=== PATIENT | male | born 1945 | race Caucasian/White ===

== ENCOUNTER → 2017-06-23 | Outpatient (CLI) | payer MEDICARE ==
[~2017-06-23] MED LIST: ACET-1966 PO; DOC100 PO; DOXA8TAB62 PO; DOXY-181 PO; FINA5TAB67 PO; LOR5 PO; PER PO; POTC540 PO; TAMS0.4C76 PO; TOLT4CAP PO
[2017-06-23 15:12] LABS: PLATELET COUNT, AUTOMATED 195 K/uL (150-450)
== END ==
LOC: LAB 15:00
PROVIDERS: ATTEND Emergency Medicine
DX: R22.1 Localized swelling, mass and lump, neck (principal)
CPT/HCPCS: 36415; 82040; 82247; 82310; 82374; 82435; 82565; 82947; 84075; 84132; 84155; 84295; 84450; 84460; 84520; 85025

== ENCOUNTER → 2017-06-24 | Outpatient (CLI) | payer MEDICARE ==
[~2017-06-24] MED LIST changes: +IOPAMIDOL 76% 75 ML INFUS BTL 75 ML ONE; +NS 0.9% 50 ML VIAL 50 ML ONE
--- NOTE | 2017-06-24 10:36 | RADIOLOGY IMAGING REPORT ---
FACILITY: [facility] PATIENT NAME: Vasyl Ocampo : 1945 MR: [id number] V: [id number] EXAM DATE: ORDERING PHYSICIAN: KATHERINE RIVAS TECHNOLOGIST: Location: [facility] [place] Patient: Vasyl Ocampo : 1945 Visit/Account:[id number] Date of Sevice: 06/24/2017 NECK SOFT TISSUE W CONTRAST Provided history: Left sided neck mass for two weeks Additional pertinent history: none TECHNIQUE: Spiral scan was obtained from the hard palate through the upper chest with intravenous contrast Contrast dose: 75 mL Isovue 370 intravenously. One of the following dose optimization techniques was utilized in the performance of this exam: Autom ated exposure control; adjustment of the mA and/or kV according to the patient's size; or use of an i terative reconstruction technique. Specific details can be referenced in the facility's radiology CT exam operational policy. COMPARISON STUDIES: none FINDINGS: Visualized orbits / brain / paranasal sinuses: Negative Nasal cavity / nasopharynx: Moderate rightward deviation nasal septum. Oral cavity / oropharynx / hypopharynx: negative Parapharyngeal / gas pump attendant spaces: negative Major salivary glands: negative Larynx / trachea / esophagus / thyroid: negative Perivertebral space: There is a circumscribed hyperdense mass in the paraspinal component of the per ivertebral space extending from lower C4 through the C6-7 level centered on the level of the C4-5 for amen the mass has a more sharply marginated point extending into the lateral aspect of the left C4-5 foramen posterior to the transverse process best seen axial images 37 and 38 which may indicate its o rigin from the exiting nerves. It shows heterogenous hypoenhancement or hypodensity centrally and hyp erenhancement or hyperdensity peripherally. It is difficult to discern calcification versus enhanceme nt on this enhanced only study. The mass is clearly in the perispinal space, not involving the hosiery operator ior carotid space. No additional similar masses elsewhere. Vessels: negative Bones: Advanced multilevel degenerative changes cervical spine involving C3-4, C4-5, C5-6 and C6-7 w ith moderate-sized bridging a plate spurs that at least mildly narrow the central canal. Multilevel f oraminal narrowing is most significant at mid cervical levels. No high-grade foraminal stenosis. No l ytic or blastic bone lesion. Skin / subcutaneous spaces: negative Lymph nodes: There is no concerning adenopathy in the neck. The lowermost images in the chest demons trate the upper margin of a water attenuation cystic structure measuring at least 3 cm in diameter, n ot fully assessed. Visualized lung apices reveal no nodules. Upper chest: Per above IMPRESSION: 1. There is a hyperdense or hyperenhancing mass in the paraspinal component of the left perivertebral space centered at the C4-5 level with a potential connection to the lateral foramen. The latter find ing in particular would suggest probable schwannoma as to etiology. Differential would include metast atic disease and less likely lymphoma. This is amenable to percutaneous sampling if indicated. 2. No neck adenopathy. There is a cystic structure in the right superior mediastinum is not fully nahomy luated, either a mediastinal cyst or possibly an extension of the pericardium. Further assessment wit h CT chest may be warranted. Report Dictated By: Wallace Rush MD at 06/24/2017 10:09 AM Report E-Signed By: Wallace Rush MD at 06/24/2017 10:32 AM WSN:[id number]
== END ==
LOC: CT 06:55
PROVIDERS: ATTEND Emergency Medicine
DX: J34.2 Deviated nasal septum (principal); M48.8X2 Other specified spondylopathies, cervical region; M50.323 Other cervical disc degeneration at C6-C7 level
CPT/HCPCS: 70491; J7050; Q9967

== ENCOUNTER → 2017-07-15 | Outpatient (CLI) | payer MEDICARE ==
[~2017-07-15] MED LIST changes: +GADOBENATE 529MG/1ML 15ML VIAL IVP ONE; -IOPAMIDOL 76% 75 ML INFUS BTL 75 ML ONE; -NS 0.9% 50 ML VIAL 50 ML ONE
--- NOTE | 2017-07-15 12:13 | RADIOLOGY IMAGING REPORT ---
FACILITY: [facility] [place] PATIENT NAME: Vasyl Ocampo : 1945 MR: [id number] V: [id number] EXAM DATE: ORDERING PHYSICIAN: KAREEM MAGALLANES TECHNOLOGIST: Location: [facility] [place] Patient: Vasyl Ocampo : 1945 Visit/Account:[id number] Date of Sevice: 07/15/2017 EXAMINATION: MRI neck without IV contrast MRI neck with IV contrast HISTORY: Mass of left side of neck. Patient states mass for 7-8 weeks, not painful. COMPARISON: CT neck from 06/24/2017. TECHNIQUE: Multi-planar, multi-sequence neck MRI was performed before and after IV contrast. CONTRAST: 15 mL of IV MultiHance gadolinium. FINDINGS: The exam is limited by patient motion artifact. Masses/lesions: A marker is placed on the left neck, corresponding to the palpable abnormality. Thi s corresponds to a mass in the paraspinal muscles to the left of the C4-C6 facets. There is slight d isplacement versus involvement of the adjacent levator scapula muscle. The lesion is heterogeneous o n T2 images with several flow voids, isointense to muscle on T1, and avidly enhances. Although the l esion is immediately adjacent to the facets, there is no involvement of the neural foramen, spinal ca nal or bony structures. The lesion measures 3.2 x 2.7 cm (image 18 series 12) by 3.8 cm (image 18 se sharon 11). This lesion corresponds to the abnormality seen on recent CT. Airway: Normal. Vessels: Negative. Marrow: Mild degenerative changes of the cervical spine. There is no focal bony abnormality or worri some marrow edema. Subcutaneous tissues: Negative. Lymph node assessment: There are no enlarged or abnormal morphology lymph nodes. Visualized orbits/brain/paranasal sinuses: Negative. Upper chest: Negative. Enhancement pattern: Normal. IMPRESSION: 3.2 x 2.7 x 3.8 cm avidly enhancing mass in the left paraspinal muscles from the C4-C6 levels, withou t involvement of the adjacent bony structures or neural foramen. Differential considerations include schwannoma or paraganglioma. Report Dictated By: July Bacon MD at 07/15/2017 11:06 AM Report E-Signed By: July Bacon MD at 07/15/2017 12:09 PM WSN:[id number]
== END ==
LOC: MRI 02:57
PROVIDERS: ATTEND Otolaryngology
DX: R22.1 Localized swelling, mass and lump, neck (principal)
CPT/HCPCS: 70543; A9577

== ENCOUNTER 2017-08-01 02:19 | Day surgery (SDC) | payer MEDICARE ==
[~2017-08-01] VITALS: Ht 175.3 cm; Wt 83.0 kg
[~2017-08-01 02:19] MED LIST changes: -GADOBENATE 529MG/1ML 15ML VIAL IVP ONE; +ceFAZolin(*) 2GM/D5W 50ML 50 ML IVPB ONE
[2017-08-01] MEDS ORDERED: LIDOCAINE MPF 1% 5 ML VIAL ONE (07:01)
[2017-08-01] MEDS ORDERED: DEXAMETHASONE SOD 4 MG/ML VIAL ONE (07:01)
[2017-08-01] MEDS ORDERED: ONDANSETRON 4 MG/2 ML VIAL ONE (07:01)
[2017-08-01] MEDS ORDERED: PROPOFOL EMUL(*) 10MG/ML 20 ML 20 ML ONE (07:01)
[2017-08-01] MEDS ORDERED: fentaNYL CITR 100 MCG/2 ML AMP ONE ×2 (07:01→10:03)
[2017-08-01] MEDS ORDERED: BACITRACIN OINT 15 GM TUBE TP ONE (07:09)
[2017-08-01] MEDS ORDERED: LIDO/EPI 1% MDV 1:100,000 20ML INFIL ONE (07:10)
[2017-08-01 07:16] LABS: PLATELET COUNT, AUTOMATED 170 K/uL (150-450)
--- NOTE | 2017-08-01 07:38 | EKG ---
FACILITY: [facility] - [place] PATIENT NAME: KWABENA KRAUSE : [id number] MR: [id number] V: [id number] EXAM DATE: ORDERING PHYSICIAN: BARNDON HOUSTON TECHNOLOGIST: NATHAN Test Reason : PREOP-NECK Blood Pressure : / mmHG Vent. Rate : 076 BPM Atrial Rate : 076 BPM P-R Int : 170 ms QRS Dur : 080 ms QT Int : 374 ms P-R-T Axes : 046 053 041 degrees QTc Int : 420 ms Sinus rhythm No acute appearing findings No previous ECGs available Confirmed by NILAM VALDEZ ([id number]) on 08/01/2017 11:35:42 AM Referred By: ELPIDIO Confirmed By:NILAM VALDEZ
[2017-08-01 07:55] VITALS: BP 129/89
[2017-08-01] MEDS ORDERED: ceFAZolin(*) 2GM/D5W 50ML 50 ML IVPB ONE ×2 (08:10→08:15)
[2017-08-01] MEDS ORDERED: LIDOCAINE/SOD BICARB 8.4% SYR ID ONE (08:20)
[2017-08-01] MEDS ORDERED: NORMOSOL R SOLN(*) 1000 ML BAG 1,000 ML IV PRN (08:20)
[2017-08-01] MEDS ORDERED: FAMOTIDINE 20 MG TAB PO ONE (08:20)
[2017-08-01] MEDS ORDERED: MIDAZOLAM 2 MG/2 ML VIAL IVP PRN (08:20)
[2017-08-01] MEDS ORDERED: KETAMINE HCL 200 MG/20 ML MDV ONE (08:45)
[2017-08-01] MEDS ORDERED: CEFU500T10 PO (09:56)
[2017-08-01] MEDS ORDERED: OXYC-865 PO (09:59)
[2017-08-01 10:45] VITALS: BP 141/87
[2017-08-01 11:00] VITALS: BP 143/91
[2017-08-01 11:10] VITALS: BP 144/92
[2017-08-01 11:12] VITALS: BP 141/91
--- NOTE | 2017-08-01 11:28 | OPERATIVE REPORT 1 ---
EVENT DATE: August 01, 2017 SURGEON: Nathan Mao MD ANESTHESIOLOGIST: Dexter Busch MD ANESTHESIA: LMA PREOPERATIVE DIAGNOSIS Posterior left neck mass. POSTOPERATIVE DIAGNOSIS Left posterior cervical lymphadenopathy. PROCEDURE PERFORMED Incisional left posterior neck lymph node biopsy. INDICATIONS Please refer to the preoperative note. PROCEDURE The patient was positively identified in the preoperative area. He was accompanied there by his . Risks were again explained, including but not limited to, bleeding, infection, injury to the accessory nerve, decreased range of motion of the left shoulder and those associated with anesthesia. He acknowledged understanding of those risks. He was then brought back to the operative suite, laid supine on the operative table and anesthesia was administered. Once asleep, the patient was positioned, then prepped and draped in usual sterile fashion. An incision overlying the left posterior neck mass was identified. An approximately 5 cm incision was planned and marked, and approximately 2 mL of 1% lidocaine with epinephrine was infiltrated. The patient was then prepped and draped in usual sterile fashion. The aforementioned incision was then made with a 15 blade. The underlying subcutaneous tissue was then dissected with Bovie electrocautery. The platysma muscle was dissected with Bovie electrocautery. I then deeply dissected onto the left posterior neck mass posterior to the sternocleidomastoid muscle and deep to the trapezius muscle. When encountered, the mass was consistent with a friable lymph node concerning for lymphoma. A technology sales representative specimen was obtained and sent for frozen section. This was consistent with lymph tissue. A larger specimen was sent fresh. The wound was then copiously irrigated with normal saline solution. Fibrillar Surgicel was placed. The platysma was then closed with interrupted Chromic suture. The skin was then closed with wilfredo. The patient was then turned to anesthesia for emergence. ESTIMATED BLOOD LOSS 25 mL COMPLICATIONS No complications. MTDD
== END 2017-08-01 10:45 | disposition home or self-care (01) ==
LOC: OR 02:19
PROVIDERS: ATTEND Otolaryngology
DX: R22.1 Localized swelling, mass and lump, neck (principal); I10 Essential (primary) hypertension
CPT/HCPCS: 36415; 38500; 85025; 88305; 88331; 93005; A9270; J1100; J2001; J2405; J2704; J3010; J3490; J0690

== ENCOUNTER 2017-08-08 00:42 | Day surgery (SDC) | payer MEDICARE ==
[~2017-08-08] VITALS: Ht 175.3 cm; Wt 82.1 kg
[~2017-08-08 00:42] MED LIST changes: +CEFU500T10 PO; +OXYC-865 PO; -ceFAZolin(*) 2GM/D5W 50ML 50 ML IVPB ONE
[2017-08-08 08:50] VITALS: BP 131/93
[2017-08-08] MEDS ORDERED: ceFAZolin(*) 2GM/D5W 50ML 50 ML IVPB ONE (09:25)
[2017-08-08] MEDS ORDERED: MIDAZOLAM 2 MG/2 ML VIAL IVP PRN (09:45)
[2017-08-08] MEDS ORDERED: NORMOSOL R SOLN(*) 1000 ML BAG 1,000 ML IV PRN (09:45)
[2017-08-08] MEDS ORDERED: FAMOTIDINE 20 MG TAB PO ONE (09:45)
[2017-08-08] MEDS ORDERED: LIDOCAINE/SOD BICARB 8.4% SYR ID ONE (09:45)
[2017-08-08] MEDS ORDERED: LIDOCAINE MPF 1% 5 ML VIAL ONE (10:05)
[2017-08-08] MEDS ORDERED: PROPOFOL EMUL(*) 10MG/ML 20 ML 40 ML ONE (10:05)
[2017-08-08] MEDS ORDERED: DEXAMETHASONE SOD PHOS 10MG/ML ONE (10:30)
[2017-08-08] MEDS ORDERED: ONDANSETRON 4 MG/2 ML VIAL ONE (10:30)
[2017-08-08] MEDS ORDERED: fentaNYL CITR 100 MCG/2 ML AMP ONE ×2 (11:15→11:49)
[2017-08-08] MEDS ORDERED: CEFU500T10 PO (11:39)
[2017-08-08] MEDS ORDERED: MEPERIDINE 50 MG/ML SYR ONE (11:56)
[2017-08-08 12:19] VITALS: BP 151/93
[2017-08-08] MEDS ORDERED: BACITRACIN OINT 15 GM TUBE TP ONE (12:53)
[2017-08-08] MEDS ORDERED: LIDO/EPI 1% MDV 1:100,000 20ML INFIL ONE (12:53)
[2017-08-08 12:54] VITALS: BP 145/102
--- NOTE | 2017-08-09 03:59 | OPERATIVE REPORT 1 ---
EVENT DATE: August 08, 2017 SURGEON: Nathan Mao MD ANESTHESIOLOGIST: Bryn De Souza M.D. ANESTHESIA: LMA. PROCEDURE Excision of deep left neck mass. PREOPERATIVE DIAGNOSIS Left deep neck mass. POSTOPERATIVE DIAGNOSIS Left deep neck mass. INDICATIONS Please refer to the preoperative note. PROCEDURE The patient was positively identified in the preoperative area. He was accompanied there by his . Risks were again explained, including but not limited to bleeding, infection, injury to the accessory nerve and those associated with anesthesia. He acknowledged understanding of those risks. He acknowledged understanding of those risks He was then brought back to the operative suite, laid supine on the operative table, and anesthesia was administered. Once asleep, the patient's previous wilfredo were removed. He was then prepped and draped in usual sterile fashion. Patient's previous incision was then opened. Residual Surgicel was removed. The wound was copiously irrigated with normal saline solution. The residual deep neck mass was identified. This was carefully removed from the surrounding tissue. This was sent for permanent pathology. The wound was then closed in a multilayer fashion. The patient was then turned to anesthesia for emergence. ESTIMATED BLOOD LOSS 25 mL. COMPLICATIONS No complications. MTDD
== END 2017-08-08 12:13 | disposition home or self-care (01) ==
LOC: OR 00:42
PROVIDERS: ATTEND Otolaryngology
DX: D48.1 Neoplasm of uncertain behavior of connective and other soft tissue (principal)
CPT/HCPCS: 21555; 88305; A9270; J1100; J2001; J2175; J2405; J2704; J3010; J0690

== ENCOUNTER 2017-09-02 13:30 | Outpatient (RCR) | payer MEDICARE ==
[2017-08-29 16:12] VITALS: BP 119/83
[2017-08-31 08:59] VITALS: BP 119/83
[2017-08-31 09:12] LABS: PLATELET COUNT, AUTOMATED 177 K/uL (150-450)
--- NOTE | 2017-08-31 11:21 | ONCOLOGY CONSULTATION ---
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 HISTORY OF PRESENT ILLNESS The patient presents for initial consultation. He had resection of a 3.8 x 3.2 x 2.7 cm mass of the left neck near the paraspinal muscles from C4 to C6. There was no involvement of bone. It required two surgeries with the repeat excision occurring on August 08, 2017. Pathology was sent to [facility] in [place], which led to the above diagnosis classification. He has recovered from surgery well. He needs postoperative radiation therapy. I plan to discuss his case in an upcoming tumor board to determine whether or not he should be a candidate for adjuvant chemotherapy as well. Per NCN guidelines, we could utilize radiation therapy alone or radiation with chemotherapy. If he had grade 3 or other adverse features, I would certainly be inclined to do that, however, with his intermediate grade, I plan to discuss it with my colleagues, including Dr. Sloan in [place]. The patient is otherwise well. He notes no other concerning lumps or bumps, fevers, chills, signs of infection, other major concerns. PAST MEDICAL HISTORY 1. BPH. 2. Kidney stones. PAST SURGICAL HISTORY 1. LASIK eye surgery. 2. Left hip replacement. 3. Lithotripsy for kidney stones. 4. Vasectomy. 5. Left neck sarcoma excision and reexcision July 2017. FAMILY HISTORY No significant cancer in the family that he can recall. SOCIAL HISTORY Patient is and presents with his . 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 Rare alcohol use. MEDICATIONS 1. Cardura. 2. Finasteride. 3. Potassium. 4. Tolterodine. REVIEW OF SYSTEMS CONSTITUTIONAL: No fevers, chills, significant weight change. HEENT: Recovered well from surgery. No headache or vision changes. The neck pain is mild. CARDIOVASCULAR: No chest pain, dyspnea on exertion or edema. RESPIRATORY: No shortness of breath, wheeze, cough. GASTROINTESTINAL: No nausea, vomiting, diarrhea or constipation. GENITOURINARY: No dysuria or hematuria. MUSCULOSKELETAL: No weakness or joint pain. PSYCHIATRIC: No anxiety or depression. ENDOCRINE: No heat or cold intolerance. Remainder of the 14-point review of systems is otherwise negative except as noted above in HPI. PHYSICAL EXAMINATION VITAL SIGNS: Blood pressure 119/83, pulse 93, respiratory rate 16, temperature 97.0 Fahrenheit, oxygen saturation 96% on room air. Height 68.5 cm. Weight 83.6 kg. Pain 2/10 in the left shoulder at the surgery site, recovering. Fatigue 0/10. GENERAL: Stable condition, resting comfortably in the chair. HEENT: Normocephalic, atraumatic. NECK: Well-healed surgical site with no erythema on the left neck with mild indentation. CARDIOVASCULAR: Regular rate and rhythm. LUNGS: Clear to auscultation bilaterally. ABDOMEN: Soft, nontender. EXTREMITIES: No clubbing, cyanosis or edema. SKIN: No concerning findings. LYMPHATIC: No appreciable cervical, supraclavicular or axillary adenopathy. PSYCHIATRIC: Normal mood and affect. The remainder of the physical exam is otherwise unremarkable. IMPRESSION AND PLAN The patient is a very pleasant 71-year-old gentleman with the followin. Stage IIIA spindle/round cell sarcoma (T3 N0 M0 G2). He has finished surgery and is now due for postoperative radiation therapy with Dr. Cutler. Given his intermediate grade, I plan to review his case at the sarcoma tumor board with [facility] to determine if he is a candidate for adjuvant chemotherapy as well. This is optional per guidelines. I am unaware if there are any clinical trial options for him as well in [place], and I know that there are none available in [place] at this time for him. We discussed the diagnosis, treatment options and natural history of undifferentiated soft tissue sarcoma such as spindle/round cell sarcoma in great detail. Discussed the significance of his grade 2/intermediate grade. Discussed treatment options. Discussed diet and exercise in detail today, answered all of their many questions. Billing: New patient level 5. Total time 60 minutes, counseling time 45. MTDD
[~2017-09-02] VITALS: Ht 174 cm; Wt 83.6 kg
[~2017-09-02 13:30] MED LIST changes: +DEXTROSE 5%(*) 100 ML BAG 100 ML IVPB PRN; +LIDOCAINE/SOD BICARB 8.4% SYR ID PRN; +NS(*) 0.9% 100 ML BAG 100 ML IVPB PRN
[2017-09-02] MEDS ORDERED: IOPAMIDOL 76% 75 ML INFUS BTL 75 ML ONE (14:29)
== END 2017-10-07 11:25 | disposition home or self-care (01) ==
LOC: SPU 13:30
PROVIDERS: ATTEND Internal Medicine Medical Oncology
DX: C49.9 Malignant neoplasm of connective and soft tissue, unspecified (principal); K76.89 Other specified diseases of liver; N20.0 Calculus of kidney; M89.8X8 Other specified disorders of bone, other site
CPT/HCPCS: 36415; 74170; 85025; G0463; Q9967; 82040; 82247; 82310; 82374; 82435; 82565; 82947; 84075; 84132; 84155; 84295; 84450; 84460; 84520; 99202

== ENCOUNTER 2017-10-24 10:16 | Outpatient (RCR) | payer MEDICARE ==
[~2017-10-24 10:16] MED LIST changes: -DEXTROSE 5%(*) 100 ML BAG 100 ML IVPB PRN; -LIDOCAINE/SOD BICARB 8.4% SYR ID PRN; -NS(*) 0.9% 100 ML BAG 100 ML IVPB PRN
[2017-11-01] MEDS ORDERED: ONDA4TAB PO (15:24)
[2017-11-04] MEDS ORDERED: ONDA4TAB PO (14:44)
== END 2017-11-20 ==
LOC: RAON 10:16
PROVIDERS: ATTEND Radiology Radiation Oncology
DX: Z51.0 Encounter for antineoplastic radiation therapy (principal); C76.0 Malignant neoplasm of head, face and neck; N40.0 Benign prostatic hyperplasia without lower urinary tract symptoms
CPT/HCPCS: 36415; 77280; 77290; 77300; 77301; 77336; 77338; 77370; 77386; 85025; G0463; 77331; 77334; 82040; 82247; 82310; 82374; 82435; 82565; 82947; 84075; 84132; 84155; 84295; 84450; 84460; 84520; 99203; 99212

== ENCOUNTER → 2017-11-04 | Outpatient (CLI) | payer MEDICARE ==
[~2017-11-04] MED LIST changes: +ONDA4TAB PO
[2017-11-04 15:36] LABS: PLATELET COUNT, AUTOMATED 142 K/uL (150-450)
== END ==
LOC: LAB 15:13
PROVIDERS: ATTEND Emergency Medicine
DX: R10.11 Right upper quadrant pain (principal); K59.2 Neurogenic bowel, not elsewhere classified; R53.83 Other fatigue
CPT/HCPCS: 36415; 82040; 82150; 82247; 82310; 82374; 82435; 82565; 82947; 83690; 84075; 84132; 84155; 84295; 84450; 84460; 84520; 85025; 87338

== ENCOUNTER 2017-12-20 09:21 | Outpatient (RCR) | payer MEDICARE ==
[2017-10-10 08:42] VITALS: BP 120/81
--- NOTE | 2017-10-11 18:16 | ONCOLOGY FOLLOW UP NOTE ---
EVENT DATE: October 10, 2017 CHIEF COMPLAINT/REASON FOR VISIT Mr. 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 HISTORY OF PRESENT ILLNESS Vasyl returns. He had resection of a 3.8 x 3.2 x 2.7 cm mass of the left neck near the paraspinal muscles from C4 to C6. There was no bone involvement. He required two surgeries with a repeat excision occurring on August 08, 2017. Pathology was sent to [facility] in [place], which led to the above classification. We have reviewed FISH testing as well as the pathology in detail and there is no a specific subtype given. We did discuss today how the subtype of sarcoma often guides us on what chemotherapy regimen we recommend. It is essential that he gets postoperative radiation therapy and he is getting that at this time. This will finish on approximately October 24, 2017. I would like to get [facility] testing if able to determine if any therapy would be recommended. I have discussed this with Dr. Sloan, my colleague in [place]. He is willing to see Dr. Sloan in consultation, and this may be useful depending on what we find with the [facility] testing. I will make arrangements for this. The patient is otherwise well. No other concerning lumps or bumps, fever or chills, signs of infection. PAST MEDICAL HISTORY 1. BPH. 2. Kidney stones. PAST SURGICAL HISTORY 1. LASIK eye surgery. 2. Left hip replacement. 3. Lithotripsy for kidney stones. 4. Vasectomy. 5. Left neck sarcoma excision and reexcision July 2017. FAMILY HISTORY No significant cancer in the family that he can recall. SOCIAL HISTORY Patient is and presents with his . 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 Rare alcohol use. MEDICATIONS 1. Cardura. 2. Finasteride. 3. Potassium. 4. Tolterodine. REVIEW OF SYSTEMS CONSTITUTIONAL: No fevers, chills, weight change. HEENT: Recovering well from surgery. He is tolerating radiation therapy extremely well. The neck pain is mild with some tightness. CARDIOVASCULAR: No chest pain, dyspnea on exertion. RESPIRATORY: No shortness of breath, wheeze, cough. GASTROINTESTINAL: No nausea, vomiting. GENITOURINARY: No dysuria or hematuria. MUSCULOSKELETAL: No weakness or joint pain. PSYCHIATRIC: No anxiety or depression. ENDOCRINE: No heat or cold intolerance. Remainder of the 14-point review of systems is otherwise negative. PHYSICAL EXAMINATION VITAL SIGNS: Blood pressure 120/81, pulse 81, respiratory rate 16, temperature 96.5 Fahrenheit, oxygen saturation 94% on room air. Weight 82.5 kg. Pain 0/10 , fatigue 0/10. GENERAL: Stable condition, resting comfortably in the chair. HEENT: Normocephalic, atraumatic. NECK: His surgical scar appears very well in the neck. SKIN: There is minimal erythema on the neck from radiation. LUNGS: Clear. ABDOMEN: Soft, nontender. EXTREMITIES: No edema. Remainder of physical exam otherwise unremarkable. IMPRESSION AND PLAN The patient is a very pleasant 72-year-old gentleman with the following: Stage IIIA round cell undifferentiated sarcoma (T3 N0 M0 G2). He has finished surgery and had a complete resection followed by postoperative radiation therapy which will be complete on approximately October 24, 2017. We have discussed the potential for adjuvant chemotherapy as well. Mr. Bazan says that "he will do whatever we recommend." I would like to get [facility] testing and we are working to get this sent. Our team is trying to track down pathology to see how much of the specimen is remaining. At this time I think it would be read to get an opinion from Dr. Sloan as well. Discussed his treatment options today including the potential for adjuvant chemotherapy after he completes the radiation therapy. I answered all of their questions today. Billing: Return visit level 5. Total time 60 minutes, counseling and coordination of care time 45. High risk, high complexity. MTDD
[2017-10-24 10:26] VITALS: BP 119/85
[2017-10-24 10:38] LABS: PLATELET COUNT, AUTOMATED 151 K/uL (150-450)
[2017-11-09 09:59] VITALS: BP 111/72
--- NOTE | 2017-12-12 12:26 | ONCOLOGY FOLLOW UP NOTE ---
EVENT DATE: November 09, 2017 CHIEF COMPLAINT/REASON FOR VISIT Mr. 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 HISTORY OF PRESENT ILLNESS Vasyl returns. He had resection of a 3.8 x 3.2 x 2.7 cm mass of the left neck near the paraspinous muscles from C4 to C6. There was no bone involvement. He required two surgeries to have complete resection, with this occurring on August 08, 2017. The pathology was reviewed at [facility] in [place], which led to the above classification. The pathologist was frustrated with the inability to classify the sarcoma any further. FISH testing was done and did not reveal any specific subtype. We now have [facility] testing which showed microsatellite stable status, as well as an atypical mutation of U2AF1. Unfortunately there are no therapeutic targets with that. I have been in communication with Dr. Sloan, my colleague in [place] who is a sarcoma specialist. I an currently struggling to figure out exactly what type of adjuvant therapy should be considered. It is possible that Mr. Bazan is already cured and we could consider active surveillance. However, given the aggressiveness of the sarcoma, I would like him to meet with Dr. Sloan given all of this information and now that he has completed his radiation therapy two weeks ago. He is recovering from this well. We will make arrangements for this. PAST MEDICAL HISTORY 1. BPH. 2. Kidney stones. PAST SURGICAL HISTORY 1. LASIK eye surgery. 2. Left hip replacement. 3. Lithotripsy for kidney stones. 4. Vasectomy. 5. Left neck sarcoma excision and reexcision July 2017. FAMILY HISTORY No significant cancer in the family that he can recall. SOCIAL HISTORY Patient is and presents with his . 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 Rare alcohol use. MEDICATIONS 1. Cardura. 2. Finasteride. 3. Potassium. 4. Tolterodine. REVIEW OF SYSTEMS CONSTITUTIONAL: No fevers, chills, weight change. HEENT: Recovering well from surgery. He is tolerating radiation therapy extremely well. The neck pain is mild with some tightness. CARDIOVASCULAR: No chest pain, dyspnea on exertion. RESPIRATORY: No shortness of breath, wheeze, cough. GASTROINTESTINAL: No nausea, vomiting. GENITOURINARY: No dysuria or hematuria. MUSCULOSKELETAL: No weakness or joint pain. PSYCHIATRIC: No anxiety or depression. ENDOCRINE: No heat or cold intolerance. SKIN: No concerning rash or findings. LYMPHATIC: No concerning lumps or bumps. PHYSICAL EXAMINATION VITAL SIGNS: Blood pressure 111/72, pulse 79, respiratory rate 16, temperature 96.6 Fahrenheit, oxygen saturation 94% on room air. Weight 80.4 kg. Pain 0/10 , fatigue 0/10. GENERAL: Stable condition, resting comfortably in the chair. HEENT: Normocephalic, atraumatic. CARDIOVASCULAR: Regular rate and rhythm. LUNGS: Clear. ABDOMEN: Soft. SKIN: No concerning findings. LYMPHATIC: No appreciable cervical, supraclavicular or axillary adenopathy. His surgical region is healing quite well. Remainder of physical exam otherwise unremarkable. IMPRESSION AND PLAN Mr. Bazan is a very pleasant 72-year-old gentleman with the following: Stage IIIA round cell undifferentiated sarcoma (T3 N0 M0 G2). He has finished surgery and postoperative radiation therapy. Radiation completed on October 24, 2017. We have discussed frequently the consideration of adjuvant chemotherapy and pursued FISH testing second opinion pathology as well as [facility] testing. We do not have a more specific diagnosis than undifferentiated round cell sarcoma. This is not particularly helpful in determining the best adjuvant chemotherapy or targeted therapy options. I would like him to visit with Dr. Sloan to get his detailed review and discuss the pros and cons of therapy as well as consider clinical trials if appropriate. We do not have any clinical trials available in the [place] currently for sarcoma. I answered all of his questions today. He is very open to this idea. Billing: Return visit level 4. Total time 30 minutes, counseling time 20. MTDD
--- NOTE | 2017-12-19 11:12 | RADIOLOGY IMAGING REPORT ---
FACILITY: [facility] [place] PATIENT NAME: Vasyl Ocampo : 1945 MR: [id number] V: [id number] EXAM DATE: ORDERING PHYSICIAN: EDUARDO TRAORE TECHNOLOGIST: Location: [facility] Patient: Vasyl Ocampo : 1945 Visit/Account:[id number] Date of Sevice: 12/19/2017 NECK SOFT TISSUE W CONTRAST Provided history: Enhancing mass of the left paraspinal space at the C4-5 level on previous study has been treated with radiation therapy. Histology of this mass is not provided for today's exam. Additional pertinent history: none TECHNIQUE: Spiral scan was obtained from the hard palate through the upper chest with intravenous contrast Contrast dose: 75 mL Isovue 370 intravenously. One of the following dose optimization techniques was utilized in the performance of this exam: Autom ated exposure control; adjustment of the mA and/or kV according to the patient's size; or use of an i terative reconstruction technique. Specific details can be referenced in the facility's radiology CT exam operational policy. COMPARISON STUDIES: CT neck 06/24/17 FINDINGS: Visualized orbits / brain / paranasal sinuses: negative Nasal cavity / nasopharynx: Moderate focal deviation of nasal septum to the right. Oral cavity / oropharynx / hypopharynx: negative Parapharyngeal / supplier development manager spaces: negative Major salivary glands: negative Larynx / trachea / esophagus / thyroid: negative Perivertebral space: The enhancing soft tissue mass has prominently regressed since the th erapy. Residual enhancement is relatively faint and estimated maximal transverse diameter of 0.6 x 2. 2 cm best seen image 48. There is normal fat preserved in the foramen. There is effacement of intermu scular fat at this level post radiation. No enlarging component. Vessels: negative Bones: Stable degeneration of mid and lower cervical disks. Skin / subcutaneous spaces: negative Lymph nodes: negative Upper chest: negative IMPRESSION: 1. Interim prominent reduction in size and degree of enhancement of the left paraspinal C4-5 level ma ss. Residual as defined above. 2. No new significant findings in the neck. Report Dictated By: Wallace Rush MD at 12/19/2017 11:00 AM Report E-Signed By: Wallace Rush MD at 12/19/2017 11:08 AM WSN:[email or web address]
--- NOTE | 2017-12-19 14:42 | RADIOLOGY IMAGING REPORT ---
[place] [facility] [place]IENT NAME: Vasyl Ocampo : 1945 MR: [id number] V: [id number] EXAM DATE: ORDERING PHYSICIAN: EDUARDO TRAORE TECHNOLOGIST: [facility] Patient: Vasyl Ocampo : 1945 Visit/Account:[id number] Date of Sevice: 12/19/2017 CHEST W CONTRAST History: Soft tissue tumor left side of neck. Patient is completed radiation treatment. TECHNIQUE: Contiguous axial images were performed through the chest to the level of the adrenal gla nds following the administration of IV contrast. Coronal and sagittal reformatting was also perform ed. One of the following dose optimization techniques was utilized in the performance of this exam: Automated exposure control; adjustment of the mA and/or kV according to the patient's size; or use of an iterative reconstruction technique. Specific details can be referenced in the facility's radiol ogy CT exam operational policy. Contrast: 75 mL Isovue-370 COMPARISON STUDIES: Comparison CT of the neck which demonstrates a large left-sided hyperdense enha ncing mass adjacent to the cervical spine Lungs / Pleura: Lung parenchyma is well-aerated. No pulmonary nodules are seen. Mediastinum/nodes: There is a presacral nodule which measures between 36 and 50 Hounsfield units whi ch measures 2.4 cm transverse by 1.2 cm AP by 5.4 cm craniocaudad (sagittal image 56). No apparent e nhancement. The superior margin of this lesion is seen on the previous CT cervical spine and does no t appear changed. No other mediastinal lesions are seen. Heart and vessels: negative. Musculoskeletal / Body wall: Mild spondylitic changes are noted. Upper abdomen: Visualized abdominal viscera negative. IMPRESSION: No evidence of pulmonary nodules. Solitary pretracheal mediastinal mass as described above. This might represent a mediastinal protein aceous cyst or atypical pericardial recess. Solitary enlarged lymph node possible but the appearance is somewhat atypical. Lesion of other etiology also possible.. Consider PET/CT to assess whether i t is physiologically active which would increase suspicion for malignancy. Exam otherwise unremarkable. No pulmonary lesions. Report Dictated By: Andry Cardenas MD at 12/19/2017 2:16 PM Report E-Signed By: Andry Cardenas MD at 12/19/2017 2:38 PM WSN:[email or web address]
[~2017-12-20 09:21] MED LIST changes: +IOPAMIDOL 76% 100 ML INFUS BTL 100 ML ONE
[2017-12-20 09:28] VITALS: BP 106/72
--- NOTE | 2017-12-21 05:30 | [facility] ONCOLOGY NOTE ---
EVENT DATE: December 20, 2017 CHIEF COMPLAINT/REASON FOR VISIT Mr. 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 HISTORY OF PRESENT ILLNESS Vasyl returns. He had resection of a 3.8 x 3.2 x 2.7 cm mass of the left neck near the paraspinous muscles from C4 to C6. There was no bony involvement. He required two surgeries for complete resection, with the second occurring on August 08, 2017. The pathology was reviewed at [facility] in [place], which led to the above classification. The pathologists were frustrated with the inability to classify the tumor any further. FISH testing was done and did not reveal any specific subtype. We did [facility] testing, which showed microsatellite stable status, as well as an atypical mutation of U2AF1. Unfortunately there were no therapeutic targets with that. He saw my colleague, Dr. Thacker, in [place], who agreed that we could consider active surveillance. I had extensive discussions with Vasyl and his about the pros and cons of adjuvant chemotherapy in this borderline situation. After discussion and meeting with Dr. Thacker, we plan to begin close active surveillance. I reviewed his imaging from this week. There is an atypical finding on the CT of the chest that I do not believe is related to cancer. Dr. Cardenas, the radiologist, also agrees it is most likely a benign finding. However, both recommend a PET scan, and we will get this with his next scan due in two to three months. Dr. Thacker recommends imaging every three months for two years, and then every six months for six years. No new symptoms. He feels quite well. He is being evaluated for sleep apnea. PAST MEDICAL HISTORY 1. BPH. 2. Kidney stones. PAST SURGICAL HISTORY 1. LASIK eye surgery. 2. Left hip replacement. 3. Lithotripsy for kidney stones. 4. Vasectomy. 5. Left neck sarcoma excision and reexcision July 2017. FAMILY HISTORY No significant cancer in the family that he can recall. SOCIAL HISTORY Patient is and presents with his . 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 Rare alcohol use. MEDICATIONS 1. Cardura. 2. Finasteride. 3. Potassium. 4. Tolterodine. REVIEW OF SYSTEMS CONSTITUTIONAL: No fevers, chills, weight change. HEENT: Recovering well from surgery and radiation. He does have some tightness in the neck, but it is overall mild. He completed his radiation on October 24, 2017 with a total of 6300 cGy. CARDIOVASCULAR: No chest pain, dyspnea on exertion or edema. RESPIRATORY: No shortness of breath, wheeze, cough. GASTROINTESTINAL: No nausea, vomiting, diarrhea. GENITOURINARY: No dysuria or hematuria. MUSCULOSKELETAL: No weakness or joint pain. PSYCHIATRIC: No anxiety or depression. ENDOCRINE: No heat or cold intolerance. SKIN: No concerning rash or findings. LYMPHATIC: No concerning lumps or bumps. Remainder of 14-point review of systems is otherwise negative. PHYSICAL EXAMINATION VITAL SIGNS: Blood pressure 106/72, pulse 99, respiratory rate 16, temperature 96.7 Fahrenheit, oxygen saturation 94% on room air. Weight 80.4 kg and stable. Pain 0/10, fatigue 0/10. GENERAL: Stable condition, resting comfortably in the chair. HEENT: Normocephalic, atraumatic. MUSCULOSKELETAL: He has surgical scar adjacent to the left neck, some muscle tightness of his posterior rotator cuff and trapezius muscles due to the surgery. No atypical findings on exam. EXTREMITIES: No clubbing, cyanosis or edema. LYMPHATIC: Exam negative. Remainder of physical exam otherwise unremarkable. IMPRESSION AND PLAN Mr. Bazan is a pleasant 72-year-old gentleman with the following: Stage IIIA round cell undifferentiated sarcoma. He has finished surgery and postoperative radiation therapy. We had extensive testing and do not have a more specific diagnosis than undifferentiated round cell sarcoma. We discussed adjuvant therapy versus close active surveillance in detail, and we have elected to pursue active surveillance. He saw my colleague, Dr. Thacker, in [place] for a second opinion regarding this decision. I answered all of his questions today. He has an atypical finding, most likely a cyst or other benign lesion, on the scan, and we will repeat imaging in approximately three months with a PET scan to evaluate that area further. Billing: Return visit level 4. Total time 30 minutes, counseling time 20. High risk, high complexity. [facility]
== END 2018-01-08 ==
LOC: ONC 09:21
PROVIDERS: ATTEND Internal Medicine
DX: C76.0 Malignant neoplasm of head, face and neck (principal); Z92.3 Personal history of irradiation
CPT/HCPCS: 36415; 70491; 71260; 82565; 85025; G0463; Q9967; 82040; 82247; 82310; 82374; 82435; 82947; 84075; 84132; 84155; 84295; 84450; 84460; 84520; 99212

== ENCOUNTER 2018-01-10 09:51 | Outpatient (RCR) | payer MEDICARE ==
[2018-01-09 09:15] LABS: PLATELET COUNT, AUTOMATED 149 K/uL (150-450)
[2018-01-09 09:51] VITALS: BP 125/80
[~2018-01-10 09:51] MED LIST changes: -IOPAMIDOL 76% 100 ML INFUS BTL 100 ML ONE
== END 2018-01-12 14:22 | disposition home or self-care (01) ==
LOC: RAON 09:51
PROVIDERS: ATTEND Radiology Radiation Oncology
DX: Z51.0 Encounter for antineoplastic radiation therapy (principal); C76.0 Malignant neoplasm of head, face and neck; N40.0 Benign prostatic hyperplasia without lower urinary tract symptoms; C49.0 Malignant neoplasm of connective and soft tissue of head, face and neck
CPT/HCPCS: 36415; 84443; 85025; G0463; 82040; 82247; 82310; 82374; 82435; 82565; 82947; 84075; 84132; 84155; 84295; 84450; 84460; 84520; 99212

== ENCOUNTER → 2018-01-19 | Outpatient (CLI) | payer MEDICARE | LOC: RESP 19:57 | PROVIDERS: ATTEND Emergency Medicine | DX: G47.33 Obstructive sleep apnea (adult) (pediatric) (principal); G47.61 Periodic limb movement disorder ==

== ENCOUNTER → 2018-02-01 | Outpatient (CLI) | payer MEDICARE | LOC: LAB 09:03 | PROVIDERS: ATTEND Emergency Medicine | DX: Z02.9 Encounter for administrative examinations, unspecified (principal) ==

== ENCOUNTER → 2018-02-01 | Outpatient (CLI) | payer MEDICARE | LOC: LAB 09:06 | PROVIDERS: ATTEND Emergency Medicine | DX: G25.81 Restless legs syndrome (principal); E66.3 Overweight; C49.9 Malignant neoplasm of connective and soft tissue, unspecified | CPT/HCPCS: 36415; 82465; 82607; 83540; 83550; 83718; 84478 ==

== ENCOUNTER 2018-03-06 08:54 | Outpatient (RCR) | payer MEDICARE ==
[2018-03-06 08:58] VITALS: BP 111/79
[2018-03-06 09:12] LABS: PLATELET COUNT, AUTOMATED 147 K/uL (150-450)
--- NOTE | 2018-03-07 17:45 | ONCOLOGY FOLLOW UP NOTE ---
EVENT DATE: March 06, 2018 CHIEF COMPLAINT/REASON FOR VISIT Mr. Bazan is a pleasant, 72-year-old gentleman with a history of stage IIIA (T3N0M0, G2), undifferentiated round cell sarcoma on the left neck. HISTORY OF PRESENT ILLNESS Vasyl returns. He had resection of a 3.8 x 3.2 x 2.7 cm mass in the left neck near the paraspinous muscles from C4 to C8. There was no bony involvement. He required two surgeries for his complete resection with the second surgery occurring on August 08, 2017. The pathology revealed the undifferentiated round cell sarcoma, and it was reviewed at [facility] in [place]. The pathologists were frustrated with their inability to classify the tumor further. FISH testing was done and did not reveal any specific subtype. We also did [facility] testing which showed microsatellite stable status as well as an atypical mutation of U2AF1. Unfortunately, there are no known therapeutic targets for that at this time. He also saw my colleague, Dr. Thacker in [place], and agreed that we could consider active surveillance. We discussed the potential role for adjuvant chemotherapy, and after discussion, began active surveillance. His PET scan from this last week looks excellent. His SUV score has improved from 4.8 to 3.2, and the radiologist feels that this is simply post-treatment changes in inflammation from his surgeries. Due to the fact it is not completely normal, I would like to get another PET scan in six months. If we can get a normal PET scan, then we could switch to CT scans. That has not yet happened. PAST MEDICAL HISTORY 1. BPH. 2. Kidney stones. PAST SURGICAL HISTORY 1. LASIK eye surgery. 2. Left hip replacement. 3. Lithotripsy for kidney stones. 4. Vasectomy. 5. Left neck sarcoma excision and reexcision July 2017. FAMILY HISTORY No significant cancer in the family that he can recall. SOCIAL HISTORY Patient is and presents with his . 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 Rare alcohol use. MEDICATIONS 1. Cardura. 2. Finasteride. 3. Potassium. 4. Tolterodine. REVIEW OF SYSTEMS CONSTITUTIONAL: No fevers, chills, weight change. HEENT: Recovering well from surgery and radiation. He does have some tightness in the neck, but it is overall mild. He completed his radiation on October 24, 2017, with a total of 6300 cGy. CARDIOVASCULAR: No chest pain, dyspnea on exertion, or edema. RESPIRATORY: No shortness of breath, wheeze, cough. GASTROINTESTINAL: No nausea, vomiting, diarrhea. GENITOURINARY: No dysuria or hematuria. MUSCULOSKELETAL: No weakness or joint pain. PSYCHIATRIC: No anxiety or depression. ENDOCRINE: No heat or cold intolerance. SKIN: No concerning rash or findings. LYMPHATIC: No concerning lumps or bumps. Remainder of 14-point review of systems is otherwise negative. PHYSICAL EXAMINATION VITAL SIGNS: Blood pressure 111/79, pulse 84, respiratory rate 16, temperature 96.4 Fahrenheit, oxygen saturation 94% on room air. Weight 81.9 kg. Pain zero/10, fatigue zero/10. GENERAL: ECOG performance status zero, resting comfortably in the chair. HEENT: Normocephalic. There is a slight indentation at the area of surgery, but overall, the neck looks very well. CARDIOVASCULAR: Regular rate and rhythm. LUNGS: Clear. ABDOMEN: Soft, nontender. EXTREMITIES: No clubbing, cyanosis, or edema. LYMPHATIC: No appreciable cervical, supraclavicular, axillary adenopathy. SKIN: There is no more evidence of erythema in the area of radiation on the left neck. Remainder of physical exam otherwise unremarkable. IMPRESSION AND PLAN Mr. Bazan is a very pleasant gentleman with the followin. Undifferentiated round cell sarcoma stage IIIA (T3N0M0 G2). He tolerated therapy very well with surgery and radiation. He did not receive any adjuvant chemotherapy after extensive discussion and consultations. He currently has no evidence of disease, and his PET scan looks well. I reviewed the imaging with him in detail. His labs look appropriate as well. No other concerns today. I plan to see him every six months for the first two years with imaging. If he has any signs of symptoms of concern in the interim, we will see him in followup. I answered all his questions today. BILLING Return visit level 4. Total time 30 minutes, counseling time 20. MTDD
[2018-04-10] MEDS ORDERED: ROSU10TA5 PO (10:02)
== END 2018-04-12 08:54 | disposition home or self-care (01) ==
LOC: SPU 08:54
PROVIDERS: ATTEND Internal Medicine
DX: Z85.831 Personal history of malignant neoplasm of soft tissue (principal); Z92.3 Personal history of irradiation
CPT/HCPCS: 36415; 85025; G0463; 82040; 82247; 82310; 82374; 82435; 82565; 82947; 84075; 84132; 84155; 84295; 84450; 84460; 84520; 99212

== ENCOUNTER → 2018-03-11 | Outpatient (CLI) | payer MEDICARE | LOC: RESP 19:45 | PROVIDERS: ATTEND Emergency Medicine | DX: G47.33 Obstructive sleep apnea (adult) (pediatric) (principal); G47.31 Primary central sleep apnea ==

== ENCOUNTER → 2018-05-15 | Outpatient (CLI) | payer MEDICARE ==
[~2018-05-15] MED LIST changes: +ROSU10TA5 PO
== END ==
LOC: LAB 11:28
PROVIDERS: ATTEND Emergency Medicine
DX: E78.5 Hyperlipidemia, unspecified (principal)
CPT/HCPCS: 36415; 82465; 83718; 84478

== ENCOUNTER 2018-09-04 08:45 | Outpatient (RCR) | payer MEDICARE ==
[2018-08-31 12:43] VITALS: BP 116/78
[2018-08-31 12:55] LABS: PLATELET COUNT, AUTOMATED 151 K/uL (150-450)
[2018-09-04 08:54] VITALS: BP 122/79
--- NOTE | 2018-09-05 06:12 | ONCOLOGY FOLLOW UP NOTE ---
EVENT DATE: September 04, 2018 CHIEF COMPLAINT/REASON FOR VISIT Mr. Bazan is a pleasant 72-year-old gentleman with a history of stage IIIA (T3 N0 M0, grade 2) undifferentiated round-cell sarcoma on the left neck. HISTORY OF PRESENT ILLNESS Vasyl returns. He had resection of a 3.8 x 3.2 x 2.7 cm mass in the left neck near the paraspinous muscles from C4 to C8. There was no bony involvement, thankfully. This required two surgeries to complete resection, with the second surgery being on August 08, 2017. Pathology revealed the undifferentiated round-cell sarcoma with unremarkable FISH testing. This was reviewed at [facility] in [place]. The pathologists were frustrated with their inability to classify the tumor further. We also did [facility] testing, which showed microsatellite stable status as well as an untypical mutation of U2AF1. Unfortunately, there are no known therapeutic targets for this at this time. He also saw my colleague Dr. Thacker in [place], who is a sarcoma specialist and agreed with active surveillance. His PET/CT from this month is excellent. We now have three PET scans that look normal. We can now get scans as needed, as his area is readily palpable. Plan to check him every six months with labs, physical exam and history. If there are any concerns, though, we would rapidly get a CT scan. No other new symptoms today. We had an excellent meeting today. I reviewed his PET imaging in detail, and I concur with the report by Radiology. The patient completed radiation therapy adjuvantly in October 2017. No chemotherapy. PAST MEDICAL HISTORY 1. BPH. 2. Kidney stones. PAST SURGICAL HISTORY 1. LASIK eye surgery. 2. Left hip replacement. 3. Lithotripsy for kidney stones. 4. Vasectomy. 5. Left neck sarcoma excision and reexcision July 2017. FAMILY HISTORY No significant cancer in the family that he can recall. SOCIAL HISTORY Patient is and presents with his . 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 Rare alcohol use. MEDICATIONS 1. Cardura. 2. Finasteride. 3. Potassium. 4. Tolterodine. 5. Rosuvastatin. REVIEW OF SYSTEMS CONSTITUTIONAL: No fevers, chills, weight change. HEENT: Recovering well from surgery and radiation. He does have some tightness in the neck, but it is overall mild. He completed his radiation on October 24, 2017, with a total of 6300 cGy. CARDIOVASCULAR: No chest pain, dyspnea on exertion, or edema. RESPIRATORY: No shortness of breath, wheeze, cough. GASTROINTESTINAL: No nausea, vomiting, diarrhea. GENITOURINARY: No dysuria or hematuria. MUSCULOSKELETAL: No weakness or joint pain. PSYCHIATRIC: No anxiety or depression. ENDOCRINE: No heat or cold intolerance. SKIN: No concerning rash or findings. LYMPHATIC: No concerning lumps or bumps. Remainder of 14-point review of systems is otherwise negative. PHYSICAL EXAMINATION VITAL SIGNS: Blood pressure 122/79, pulse 68, respiratory rate 16, temperature 96.5 Fahrenheit, oxygen saturation 95% on room air. Weight 86.5 kg. Pain zero/10, fatigue zero/10. GENERAL: Stable condition, resting comfortably in the chair. HEENT: Normocephalic, atraumatic. LYMPHATIC: No appreciable cervical, supraclavicular, or axillary adenopathy. CARDIOVASCULAR: Regular rate and rhythm. LUNGS: Clear to auscultation bilaterally. ABDOMEN: Soft. EXTREMITIES: No clubbing, cyanosis, or edema. SKIN: No concerning findings. Remainder of physical exam otherwise unremarkable today. IMPRESSION/REPORT/PLAN Mr. Bazan is a very pleasant 72-year-old gentleman with the following: * Undifferentiated round-cell sarcoma, stage IIIA (T3 N0 M0, grade 2). He tolerated therapy well with surgery and radiation. He did not receive any adjuvant chemotherapy after extensive discussion and consultations. His PET scan looks well. We reviewed this in detail today. I plan to see him every six months. If he has any symptoms of concern, we will see him promptly and get imaging. Answered all of their questions today. BILLING Return visit, level 4. Total time 30 minutes, counseling time 17. MTDD
== END 2018-10-04 09:09 | disposition home or self-care (01) ==
LOC: ONC 08:45
PROVIDERS: ATTEND Internal Medicine
DX: Z85.89 Personal history of malignant neoplasm of other organs and systems (principal); Z92.3 Personal history of irradiation
CPT/HCPCS: 36415; 83615; 85025; G0463; 82040; 82247; 82310; 82374; 82435; 82565; 82947; 84075; 84132; 84155; 84295; 84450; 84460; 84520; 99212

== ENCOUNTER → 2018-11-24 | Outpatient (CLI) | payer MEDICARE ==
--- NOTE | 2018-11-24 13:34 | RADIOLOGY IMAGING REPORT ---
FACILITY: [facility] [place] PATIENT NAME: Vasyl Ocampo : 1945 MR: [id number] V: [id number] EXAM DATE: ORDERING PHYSICIAN: MARCOS RANKIN TECHNOLOGIST: Location: [facility] [place] Patient: Vasyl Ocampo : 1945 Visit/Account:[id number] Date of Sevice: 11/24/2018 KUB SINGLE VIEW ABDOMEN History: Evaluate for renal stones. Comparison study: November 05, 2015. Findings: There are no dilated loops of large or small bowel suggest ileus or obstruction. There are no findings of nephrolithiasis and there is no bladder calculus. Status post left total hip replacement. Osteoarthrosis of the right hip. IMPRESSION: 1. No findings of nephrolithiasis. 2. Status post left total hip replacement. 3. Osteoarthrosis of the right hip. Report Dictated By: Dariel Araujo MD at 11/24/2018 12:43 PM Report E-Signed By: Dariel Araujo MD at 11/24/2018 1:28 PM WSN:[email or web address]
== END ==
LOC: LAB 10:57
PROVIDERS: ATTEND Urology
DX: M16.11 Unilateral primary osteoarthritis, right hip (principal); Z96.642 Presence of left artificial hip joint
CPT/HCPCS: 36415; 74018; 84132; 84153

== ENCOUNTER → 2019-01-15 | Outpatient (CLI) | payer OTHER ==
[~2019-01-15] MED LIST changes: +CYAN250013 PO; +SIL50 PO
--- NOTE | 2019-01-15 16:53 | RADIOLOGY IMAGING REPORT ---
FACILITY: [facility] [place] PATIENT NAME: Vasyl Ocampo : 1945 MR: [id number] V: [id number] EXAM DATE: ORDERING PHYSICIAN: MARCOS RANKIN TECHNOLOGIST: Location: [facility] Patient: Vasyl Ocampo : 1945 Visit/Account:[id number] Date of Sevice: 01/15/2019 Exam type: KUB SINGLE VIEW ABDOMEN History: History kidney stones, preprocedure Comparison: November 24, 2018. Findings: Bowel gas pattern is nonspecific. No definite calculi are seen over the renal shadows although they are partially obscured by bowel gas. There are moderate spondylotic changes lumbar spine. Left hip arthroplasty is present. IMPRESSION: 1. Nonspecific bowel gas pattern No definite calculi identified over the renal shadows however they are partially obscured by bowel ga s Report Dictated By: Letitia Roach MD at 01/15/2019 4:43 PM Report E-Signed By: Letitia Roach MD at 01/15/2019 4:45 PM WSN:[email or web address]
== END ==
LOC: LAB 15:12
PROVIDERS: ATTEND Urology
DX: N40.1 Benign prostatic hyperplasia with lower urinary tract symptoms (principal); N20.0 Calculus of kidney
CPT/HCPCS: 36415; 74018; 84153

== ENCOUNTER 2019-01-18 01:19 | Day surgery (SDC) | payer MEDICARE ==
--- NOTE | 2019-01-16 20:20 | HISTORY AND PHYSICAL ---
DATE OF ADMISSION: January 18, 2019 CHIEF COMPLAINT BPH with lower urinary tract symptoms. HISTORY OF PRESENT ILLNESS Patient is a 73-year-old white male with a long history of BPH symptoms who has been followed in the Urology Clinic since 2010. At that time, he presented for evaluation with kidney stones and was on Cardura. His stones were treated, and then Ditropan was added to his regimen of alpha thalia. This was supplemented by Proscar in 2012, and he is currently on Detrol, Proscar, and Cardura, and continues to have bothersome symptoms. Of note, he did have a transurethral microwave thermal therapy in 2003, which did improve his symptoms for a moderate amount of time. Options were discussed, and he was interested in having a minimally invasive procedure. Therefore, UroLift was discussed, and the patient desired workup and treatment. His evaluation revealed a 28 cc volume prostate by transrectal ultrasound. There was no intraprostatic protrusion of the prostate noted on ultrasound or on cystoscopy. Cystoscopy did reveal a 2+ trabeculated bladder, but was otherwise normal. His latest PSA was 0.8. He had a AUA Symptom Score of 12 with a flow rate of 8 and a postvoid residual of 50. UroLift procedure was discussed in detail. He was informed of approximately 80% success rate over five years. He has also been informed of having hematuria and irritative voiding symptoms immediately postprocedure and an approximately 10% chance of having urinary retention for a short amount of time requiring catheterization. PAST MEDICAL HISTORY 1. Kidney stones. 2. BPH. 3. Neck sarcoma, status post XRT and surgery. 4. ED. 5. Hypercholesterolemia. 6. Hypertension. 7. Obstructive sleep apnea. PAST SURGICAL HISTORY 1. Left total hip replacement. 2. Colonoscopy. 3. Bilateral ESWL 2002, 2003. 4. Transurethral microwave therapy 2003. 5. Left extracorporeal shock wave lithotripsy 2010. 6. Right extracorporeal shock wave lithotripsy 2011. 7. Resection of neck sarcoma times two in August 2017. 8. Bilateral vasectomy. 9. LASIK eye surgery. ALLERGIES AUGMENTIN. CURRENT MEDICATIONS 1. Multivitamins. 2. Cardura. 3. Finasteride. 4. Urocit-K. 5. Viagra. 6. Detrol [place]. FAMILY HISTORY Noncontributory. SOCIAL HISTORY Patient is retired. He lives in [place], [place], and is . He denies illicit drug use or tobacco use. REVIEW OF SYSTEMS Patient denies chest pain, productive cough, fever, chills, nausea, vomiting, gross hematuria, change in weight, liver disease, or bleeding disorder. PHYSICAL EXAMINATION GENERAL: Patient is a well-developed, well-nourished white male in no acute distress. HEENT: Normocephalic, atraumatic. CHEST: Clear to auscultation bilaterally. CARDIOVASCULAR: Regular rate and rhythm. ABDOMEN: Soft, nontender. No masses are palpated. GENITOURINARY: Deferred to the OR. EXTREMITIES: Without clubbing, cyanosis, or edema. NEUROLOGIC: Nonfocal. IMPRESSION A 73-year-old white male with benign prostatic hypertrophy with lower urinary tract symptoms. PLAN Will perform anesthetic cystoscopy with UroLift implantation. [facility]
[~2019-01-18] VITALS: Ht 175.3 cm; Wt 83.0 kg
[2019-01-18 11:10] VITALS: BP 119/83
[2019-01-18] MEDS ORDERED: DEXAMETHASONE SOD PHOS 10MG/ML ONE (11:23)
[2019-01-18] MEDS ORDERED: fentaNYL CITR 100 MCG/2 ML AMP ONE (11:23)
[2019-01-18] MEDS ORDERED: ONDANSETRON 4 MG/2 ML VIAL ONE (11:23)
[2019-01-18] MEDS ORDERED: PROPOFOL EMUL(*) 10MG/ML 20 ML 20 ML ONE (11:23)
[2019-01-18 11:43] LABS: PLATELET COUNT, AUTOMATED 173 K/uL (150-450)
[2019-01-18] MEDS ORDERED: LEVOFLOXACIN/D5W*500 MG/100 ML 100 ML IVPB ONE (12:25)
[2019-01-18] MEDS ORDERED: LIDOCAINE/SOD BICARB 8.4% SYR ID ONE (12:25)
[2019-01-18] MEDS ORDERED: NORMOSOL R SOLN(*) 1000 ML BAG 1,000 ML IV PRN (12:25)
[2019-01-18] MEDS ORDERED: FAMOTIDINE 20 MG TAB PO ONE (12:25)
[2019-01-18] MEDS ORDERED: MIDAZOLAM 2 MG/2 ML VIAL IVP PRN (12:25)
[2019-01-18] MEDS ORDERED: PHEN200T32 PO (12:32)
[2019-01-18] MEDS ORDERED: LEVO-85 PO (12:32)
[2019-01-18 12:58] VITALS: BP 132/98
--- NOTE | 2019-01-20 07:28 | OPERATIVE REPORT 1 ---
EVENT DATE: January 18, 2019 SURGEON: Ronald Bach MD ANESTHESIOLOGIST: Bryn De Souza MD ANESTHESIA: General. PREOPERATIVE DIAGNOSIS Benign prostatic hypertrophy with lower urinary tract symptoms. POSTOPERATIVE DIAGNOSIS Benign prostatic hypertrophy with lower urinary tract symptoms. PROCEDURES PERFORMED 1. Cystoscopy. 2. UroLift prostatic urethral lift x4 implants. ESTIMATED BLOOD LOSS Minimal. IV FLUIDS Crystalloids. DRAINS None. COMPLICATIONS None. CONDITION Patient taken to the recovery room awake and in stable condition. STATEMENT OF MEDICAL NECESSITY Patient is a 73-year old white male with a long history of BPH who is status post a transurethral microwave thermotherapy in 2003 who has had a recurrence of his symptoms and is currently on Flomax, Proscar and Ditropan. His AUA is 12. His flow rate is 8 and his post-void residual is 50. Cystoscopy revealed no strictures or significant median lobe. He had a 2+ spiculated bladder. Ultrasound of the prostate revealed a 28 cc volume prostate and his PSA was 0.8. Options were discussed and he has elected to undergo a UroLift procedure (1) to preserve sexual function and (2) to avoid more evasive treatment such as a transurethral resection of prostate. DESCRIPTION OF PROCEDURE Patient was brought to the operating room after general anesthetic was obtained. He was placed in the dorsal lithotomy position and prepped and draped in the usual sterile manner. Anesthetic cystoscopy was performed with the 0-degree lens and 20-[place] cystoscopic sheath with the visual internal obturator. The scope was advanced into the bladder and then the obturator was removed and the UroLift delivery device was placed inside the sheath. The first treatment site was planned at the patient's left side, approximately 1.5 cm distal to the bladder neck. The device was turned to the patient's left side in the bladder and then advanced down into the prostatic urethra at predetermined area 1.5 cm from the bladder neck. It was placed on the anterior one-third of the prostate and positioned at approximately 2 o'clock to 3 o'clock position relative to the prostatic urethra. At this point, the lateral lobe was compressed by angling the device approximately 20 degrees laterally. Keeping the device in place, the needle safety lock was released. The blue trigger was deployed to deploy the needle containing the implant through the prostate to the outside. At this point, the forte retraction lever was pressed as well to allow the needle to be retracted, thereby delivering the capsular tab at the outside of the prostate. Following this, the implant was tensioned to assure capsular receding and removal of the segment of filament. The device was then advanced approximately 2 or 3 mm proximally until the white line was seen on the monofilament suture. It was also ensuring to keep the suture in the center of the keyhole and attached to the edge of the keyhole closest to the cystoscopic view. At this point, when the light line was in the center of the keyhole the urethral release button was pressed to affix the urethral endpiece to the monofilament and to cut the excess suture, thereby tailoring the size of the implant at this area. Following this, the device was advanced back into the bladder. The device was then removed from the cystoscopic sheath, the second device inserted. The same procedure and technique was then repeated on the right side at the proximal prostatic urethra. Two more implants were then delivered just proximally to the verumontanum, one on the right and one on the left side using the same technique. The visual obturator was then replaced and a final cystoscopy was performed, which confirmed the presence of a continuous anterior chamber with the irrigation of flow turned off. At this point, the bladder was left with approximately 200 cc of irrigation fluid to assist the patient in a voiding trial post-procedure. The scope was then removed. The patient was awakened in the operating room and taken to the recovery area in stable condition. PLAN We will have the patient perform a voiding trial in the recovery area. If he is successful, we will plan to discharge him home on Flomax and his Proscar. He is to hold his Ditropan for the time being. We will also give him three days of Levaquin and Pyridium. MICHEAL
== END 2019-01-18 12:58 | disposition home or self-care (01) ==
LOC: OR 01:19
PROVIDERS: ATTEND Urology
DX: N40.1 Benign prostatic hyperplasia with lower urinary tract symptoms (principal); I10 Essential (primary) hypertension
CPT/HCPCS: 36415; 52441; 52442; 81001; 85025; 87088; A9270; J1100; J1956; J2250; J2405; J2704; J3010; L8699; 82040; 82247; 82310; 82374; 82435; 82565; 82947; 84075; 84132; 84155; 84295; 84450; 84460; 84520